=== PATIENT | female | born 1980 | race Two or more races ===

== ENCOUNTER 2016-07-08 07:09 | Emergency (ER) | payer OTHER ==
--- NOTE | 2016-07-08 07:34 | UCPHY ---
H & P Time Seen by Provider: 07/08/16 07:27 Patient Type: New HPI/ROS: HPI Sinus problems. 35-year-old female by private vehicle. This patient reports that she has had sinus congestion and rhinorrhea productive of a clear to yellowish discharge for the last several days. She has a prior history of sinusitis which is require treatment with antibiotics. She tells me she has developed bronchitis from this as well as pneumonia. She is asking for antibiotics, azithromycin, now. She states that azithromycin has worked well for her in the past. Last antibiotic use for this problem was about 2 years ago. ROS: Constitutional: No fever, no chills. No weakness. Eyes: No discharge. No changes in vision. ENT: No sore throat. As above. Respiratory: No cough. No shortness of breath. Cardiac: No chest pain, no palpitations. Gastrointestinal: No abdominal pain, no vomiting, no diarrhea. Genitourinary: No hematuria. No dysuria or increased frequency with urination. Musculoskeletal: No back pain. No neck pain. No myalgias or arthralgias. Skin: No rashes. Neurological: No headache. No focal weakness or altered sensation. Past medical history: As above. Social history: Here by herself. Physical Exam: General Appearance: Alert, no distress. This patient is responding to questions appropriately and in full sentences. This patient appears well- hydrated and well-nourished. Eyes: Pupils equal and round no pallor or injection. No lid edema, erythema or injection. ENT, Mouth: Mucous membranes are moist. The pharyngeal tissues are unremarkable. No edema or swelling. No asymmetry suggestive of abscess. No erythema or exudates. Respiratory: There are no retractions, lungs are clear to auscultation with good air movement bilaterally. Cardiovascular: Regular rate and rhythm. No murmur. Neurological: Motor sensory function is grossly intact. Cranial nerves are normal. Gait is normal. Skin: Warm and dry, no rashes. Musculoskeletal: Neck is supple and nontender. No cervical, submental, submandibular lymphadenopathy. Extremities are symmetrical. All joints range without pain or impingement. Psychiatric: No agitation. No depression. Database: EKG: Imaging: Procedures: Emergency department course: After my evaluation, discussed my hesitation providing this patient antibiotics. Her vital signs were reviewed and are normal. She is afebrile. Explained that she likely has a viral condition. We agree to treat this immediately with nasal steroids, Flonase, if her symptoms persist or she develops fever I will provide her with a prescription for antibiotics which she can fill for further treatment in 1-2 days. She is requesting azithromycin. I explained that this was not the best antibiotic for bacterial sinusitis but had a low side effect profile. I again stressed that she likely had a viral source of her sinusitis and to give the nasal steroids a couple of days to take effect. She was in agreement with this plan. Follow-up and return to Urgent Care precautions discussed. She was discharged in good condition. Differential Diagnosis: The differential diagnosis on this patient includes but is not limited to sinusitis, rhinitis, upper respiratory infection, viral syndrome. Serious bacterial infection unlikely. This represents a partial list of diagnoses considered. These considerations are based on history, physical exam, past history, reassessment and diagnostic testing. Constitutional: Initial Vital Signs Temperature (C) 36.6 C 07/08/16 07:20 Heart Rate 78 07/08/16 07:20 Respiratory Rate 18 07/08/16 07:20 Blood Pressure 112/87 H 07/08/16 07:20 O2 Sat (%) 98 07/08/16 07:20 O2 Delivery Mode Room Air Allergies/Adverse Reactions: No Known Allergies Allergy (Unverified 07/08/16 07:33) Home Medications: Medication Instructions Recorded Azithromycin [Zithromax] 250 mg PO DAILY #6 tab 07/08/16 Fluticasone Nasal [Flonase Nasal 120 sprays NS DAILY #0 mdi 07/08/16 [place]] Levothyroxine 07/08/16 MDM/Departure - Depart Disposition: Home, Routine, Self-Care Clinical Impression: Sinusitis, Upper respiratory infection Instructions: Sinusitis (ED), Rhinosinusitis (ED) Additional Instructions: Read and follow provided instructions. Follow-up with your primary care physician in 1-2 days for re-evaluation. Take medication as prescribed. Used nasal steroids for 2-3 days. If you do not have significant relief you can fill your prescription for azithromycin. Return to the emergency department for worsening symptoms or other serious concerns. Prescriptions: Fluticasone Nasal [Flonase Nasal [place]] 120 sprays NS DAILY #0 mdi Azithromycin [Zithromax] 250 mg PO DAILY #6 tab Referrals: [place] STATE,. [Primary Care Provider] - As per Instructions - PQRS PQRS Measurement: Not applicable.
[2016-07-08 07:36] VITALS: BP 112/87; PULSE 78; RESP 18; TEMP 97.9; O2SAT 98
== END 2016-07-08 07:49 | disposition home or self-care (01) ==
LOC: CED 07:09
DX: J32.9 Chronic sinusitis, unspecified (principal); J06.9 Acute upper respiratory infection, unspecified
CPT/HCPCS: 99203-PO; G0463-PO